=== PATIENT | female | born 1960 | race Caucasian/White ===

== ENCOUNTER → 2017-06-05 | Outpatient (CLI) | payer BC | END | disposition disaster alternative care site (69) | LOC: GRAD 12:21 | DX: C50.911 Malignant neoplasm of unspecified site of right female breast (principal); N63 Unspecified lump in breast; C77.3 Secondary and unspecified malignant neoplasm of axilla and upper limb lymph nodes | CPT/HCPCS: C8908 ==

== ENCOUNTER → 2017-06-11 | Outpatient (CLI) | payer BC ==
[~2017-06-11] VITALS: Ht 162.6 cm; Wt 63.6 kg
--- NOTE | 2017-06-11 14:46 | NUR ---
Met with patient prior to breast biopsy. Introduced self and role of nurse navigator. Told patient I would call her tomorrow. Answered questions. Will follow.
--- NOTE | 2017-06-13 13:17 | NUR ---
Called patient post breast biopsy. Patient states biosy site is fine. States procedure went very well and staff were excellent. Told her to call with any questions or concerns.
== END | disposition disaster alternative care site (69) ==
LOC: GOPD 06-08 → GBCOE 10:07 → GOPD 10:30 → GBCOE 10:30
PROC: 0HBT3ZX Excision of Right Breast, Percutaneous Approach, Diagnostic (ICD-10-PCS; principal; 2017-06-11)
DX: C50.911 Malignant neoplasm of unspecified site of right female breast (principal)
CPT/HCPCS: J7050

== ENCOUNTER → 2017-06-13 | Outpatient (CLI) | payer BC ==
--- NOTE | ~2017-06-13 | ECHO ---
Transthoracic Echocardiography Report (TTE) Demographics Patient Name KOKO APPLE Date of Study 06/13/2017 E Patient Number [id number] Visit Number [id number] Date of 1960 Room Number Accession Number [id number] Gender Female Age 56 year(s) Referring Pierre Michel MD [employer] Operations Specialist José Warren RVT Physician Iliana Lorenzo MD Physician Interpreting Kacey Lime Spreader Physician Vivian MORENO Supervising Ordering Physician Pierre Michel MD, MD/MLP Nurse Stress Service Parts Driver Conclusions Contractility Score Summary Normal Left Ventricular contractility was noted. Summary Limited echocardiogram. Normal LV size and systolic function. The estimated left ventricular ejection fraction is 65-70%. Trivial pericardial effusion. Thick epicardial fat pad. Procedure Type of Study TTE procedure:Echo Limited w/o Contrast. Procedure Date Date: 06/13/2017 Start: 03:17 PM Study Location: Echo Lab Technical Quality: Adequate visualization Indications:High Risk Medication Use. Appropriate Use Criteria: 9 Patient Status: Routine HR: 77 bpm BP: 117/61 mmHg M-Mode/2D Measurements LV Diastolic Dimension: 4.01 cm LV Systolic Dimension: 2.04 cm LV Septum Diastolic: 0.86 cm LV PW Diastolic: 0.78 cm AO Root Dimension: 2.3 cm AV Cusp Separation: 2 cm RV Diastolic Dimension: 2.24 cm LA Dimension: 2.7 cm LVOT: 2 cm Contractility Score LV regional wall motion:(0-Non visualized 1-Normal 2-Hypokinesis 3-Akinesis 4-Dyskinesis 5-Aneurysm) Signature dtt: VIVIAN LUNDBERG dtd: 06/13/17 1517 Physician Self Edit
== END | disposition disaster alternative care site (69) ==
LOC: GCAR 14:41
DX: C50.511 Malignant neoplasm of lower-outer quadrant of right female breast (principal); I31.3 Pericardial effusion (noninflammatory); Z79.899 Other long term (current) drug therapy

== ENCOUNTER 2017-06-24 13:41 | Emergency (ER) | payer BC ==
--- NOTE | ~2017-06-24 | ER ---
PATIENT'S NAME: YO APPLEUDE Brittany [facility] AGE: 56 Y [address] ROOM: [place] [address] LOCATION: ED ADMIT DATE: 06/24/2017 ER/Outpatient Report DISCHARGE DATE: 06/24/2017 FAMILY PHYSICIAN: Diego Barrientos MD ATTENDING PHYSICIAN: Omid Ellsworth CHIEF COMPLAINT: Rash. HISTORY OF PRESENT ILLNESS: Ms. Apple has a rash which started 4 days after her most recent chemo, which was her first chemo for breast cancer on this particular regimen. She had a poor response to her first attempt at chemo as well with rashes. She was seen by Dr. Bates on Sunday and was started on Levaquin, fluconazole, and an oral rinse for the rash. She states that it is getting better in her groin region, but is worse now on her chest and head. The rash is most prominent in some affected areas, but it is everywhere according to the patient. She did contact Dr. Jay, who recommended some medication with antivirals and steroids, but the patient felt that she needed to be seen, so she came from [place] today for evaluation in the emergency department. PAST MEDICAL HISTORY: Documented on the record and reviewed by me. SOCIAL HISTORY: Documented on the record and reviewed by me. MEDICATIONS: Documented on the record and reviewed by me. ALLERGIES: DOCUMENTED ON THE RECORD AND REVIEWED BY ME. REVIEW OF SYSTEMS: All systems reviewed and negative, except as noted in the HPI. PHYSICAL EXAMINATION: VITAL SIGNS: Blood pressure is 130/72, pulse 100, respiratory rate is 20, temperature 99.2, and SpO2 is 98% on room air. Pain 0/10. GENERAL: An age-appropriate female, upright in a chair in the exam room. No apparent pain or distress. NEUROLOGIC: Awake and alert. GCS 15. No focal deficits. No asymmetry. HEENT: Normocephalic and atraumatic. Eyes are PERRL. Oropharynx is notable for a few punctate areas of erythema. No other abnormalities. NECK: Supple. Trachea is midline. PATIENT'S NAME: KOKO APPLE [facility] AGE: 56 Y [address] ROOM: [place] [address] LOCATION: ED ADMIT DATE: 06/24/2017 ER/Outpatient Report DISCHARGE DATE: 06/24/2017 FAMILY PHYSICIAN: Diego Barrientos MD ATTENDING PHYSICIAN: Omid Ellsworth CHEST: Heart is regular rate and rhythm. Borderline tachycardic. LUNGS: Clear to auscultation bilaterally. No rhonchi, wheezes, or rales. ABDOMEN: Soft, nontender, and nondistended. No rebound or guarding. BACK: Normal to inspection and palpation. EXTREMITIES: Well formed and well perfused with no edema or deformities. SKIN: Notable for a macular rash most prominent over the chest and head region, but present throughout the back and proximal extremities. No clear involvement of the palms or soles. I did not examine the groin area at this time. LABORATORY DATA AND X-RAYS: No imaging was obtained for this patient. Her CMS with no appreciable abnormalities. CRP is undetectable. Procalcitonin is undetectable. Lactate is 0.9. CBC: White count is 1.0 with an absolute neutrophil count of 0, segs of 0, lymphocytes of 0.9, and monos of 0.1. Hemoglobin is 15.1 and platelets of 175. IMPRESSION: 1. Rash related to chemotherapy. 2. Severe neutropenia. EMERGENCY DEPARTMENT COURSE: The patient was seen and evaluated at bedside. Case was discussed with Dr. Jay, the patient's oncologist. Dr. Jay came and evaluated the patient. She is still recommending antiviral and steroid medications. Dr. Jay was able to get those prescriptions transferred to the [facility] in [place], for the patient's convenience. The patient will be discharged with instructions to try to avoid any sick contacts and return immediately if there is true fever or if she has any other specific concerns. All questions were answered, and the patient was discharged. MD NIURKA ROCHE/kaila /[id number] d: 06/25/17 0638 t: 06/25/17 0752, OUTPATIENT REPORT
--- NOTE | ~2017-06-24 | CON ---
PATIENT'S NAME: KOKO APPLE [facility] AGE: 56 Y [address] ROOM: [place] [address] LOCATION: [facility] ADMIT DATE: 06/24/2017 Consultation DISCHARGE DATE: 06/24/2017 FAMILY PHYSICIAN: Diego Barrientos MD ATTENDING PHYSICIAN: Omid Ellsworth DATE OF CONSULTATION: 06/24/2017 REASON FOR EVALUATION: The patient is a 56-year-old female who received carboplatin, Taxotere, Perjeta, and Herceptin on June 15, 2017, which was her first cycle. She developed some sores in her mouth on June 21 and was evaluated. She also had a little rash in her head and a little bit on her neck, and she had some burning in her perineal area. She was given Diflucan and Levaquin, and her perineal burning and itching resolved. Although she said that the rash on her head is better, it is extending down to her chest, and she states that sores in her mouth are actually worse; she was on some lidocaine and Magic Mouthwash and that helped temporarily. She denies any fevers or chills, but she was very worried about this rash that was fairly pruritic. She has been using Benadryl cream and some [id number]-[id number] lotions that seemed to help and she has been taking some oral Benadryl as well. She is not febrile here in the emergency room. Her white count was 1.0 with a hemoglobin of 15.1, platelet count 175,000. Her ANC is actually 10. Chemistry profile was completely normal. She did say that her tumor in her right lower breast is much smaller than it was a week ago. PHYSICAL EXAMINATION: SKIN: She does have some macular rash on her head and on her chest and upper back and a little bit on her upper abdomen. They are mildly raised, but there is no blistering or pustules associated with this. She does have a few ulcers on her tongue and on her inner lower lip that are fairly small. HEART: Regular without murmur. LUNGS: Clear. NECK: Without adenopathy. IMPRESSION: 1. Neutropenia associated with her chemotherapy, likely herpes stomatitis causing the mouth sores. 2. Macular rash possibly from her Taxotere treatment. RECOMMENDATIONS: 1. We will give her some valacyclovir 500 mg 2 p.o. daily for 7 days. 2. Will give her prednisone 30 mg today, 20 tomorrow, and 10 the next day, and see if that helps with her rash. PATIENT'S NAME: KOKO APPLE [facility] AGE: 56 Y [address] ROOM: [place] [address] LOCATION: [facility] ADMIT DATE: 06/24/2017 Consultation DISCHARGE DATE: 06/24/2017 FAMILY PHYSICIAN: Diego Barrientos MD ATTENDING PHYSICIAN: Omid Ellsworth 3. I did tell her to just watch out for signs of fevers, chills, etc., but she is on Levaquin since last and I told her to continue that out and just do good hand washing. 4. We will likely give her a little bit more premedication before her Taxotere and possibly give her some prednisone after her Taxotere to help with the rash which is likely the culprit. PRABHJOT GAMBOA MD CML/modl /[id number] d: t: 06/25/17 0839, CONSULTATION REPORT
[2017-06-24 14:40] LABS: HEMATOCRIT 44.1 % (33.0-46.0); HEMOGLOBIN 15.1 g/dL (10.0-15.0); MCH 31.5 pg (27.0-34.0); MCHC 34.2 gm/dL (32.0-36.5); MCV 92.1 fl (83.0-98.0); MPV 11.3 fl (9.4-12.4); PLATELET COUNT 175 K/uL (150-450); RBC 4.79 M/uL (3.50-5.50); RDW-CV 11.7 % (11.9-14.6)
[2017-06-24 14:58] LABS: ALBUMIN 3.7 gm/dL (3.5-5.0); ALK PHOS 85 IU/L (33-138); ALT 23 IU/L (12-78); AST 20 IU/L (10-40); BLOOD UREA NITROGEN 13 mg/dL (6-24); CHLORIDE 107 mMol/L (96-110); CO2 25 mMol/L (22-32); CREATININE 0.8 mg/dL (0.5-1.1); SODIUM 138 mMol/L (135-145); TOTAL BILIRUBIN 0.3 mg/dL (0.0-1.5); TOTAL PROTEIN 7.6 g/dL (6.0-8.4)
[2017-06-24 15:30] LABS: LYMPHOCYTE # 0.9 K/uL (0.8-4.0); MONOCYTE # 0.1 K/uL (0.0-1.0); SEGMENTED NEUTROPHIL % 1 %
[2017-06-24 15:31] LABS: LYMPHOCYTE % 78 %
== END 2017-06-24 16:25 | disposition disaster alternative care site (69) ==
LOC: GMED 13:41
PROVIDERS: Emergency Medicine
DX: L27.0 Generalized skin eruption due to drugs and medicaments taken internally (principal); T45.1X5A Adverse effect of antineoplastic and immunosuppressive drugs, initial encounter; C50.911 Malignant neoplasm of unspecified site of right female breast; D70.9 Neutropenia, unspecified; K14.0 Glossitis; K13.0 Diseases of lips; Z88.5 Allergy status to narcotic agent; Z79.899 Other long term (current) drug therapy; Z98.890 Other specified postprocedural states